=== PATIENT | female | born 1930 | race Caucasian/White ===

== ENCOUNTER → 2017-07-19 | Outpatient (CLI) | payer MEDICARE ==
[~2017-07-19] MED LIST: GADAVIST IV PRN
--- NOTE | 2017-07-19 17:31 | DIAGNOSTIC IMAGING REPORT ---
BRAIN COMBO FOR IAC CLINICAL HISTORY: 87 years-old Female presenting with HEADACHES, FALLS,LIGHT HEADEDNESS, nausea, vomiting, history of head trauma, history of TIAs, symptoms began February 2017. TECHNIQUE: Multisequence, multiplanar MR imaging of the brain was performed before and after the administration of intravenous contrast. Dedicated sequences for evaluation of the internal auditory canals were also performed.IV contrast: 0.5 mL of Gadavist. COMPARISON: 08/13/2009. FINDINGS: 4 x 2.8 cm heterogeneously T2 hyperintense, heterogeneously T1 hyperintense mass in the left paramedian posterior cerebellar hemisphere. There are also foci of susceptibility artifact suggesting hemosiderin or less likely calcification (series 8 image 7). This demonstrates extensive enhancement on postcontrast imaging (series 11 image 8). Extensive FLAIR signal abnormality within the bilateral cerebellar hemispheres (series 5 image 7; series 6 image 18). Confluent T2/FLAIR hyperintensity within the left frontal lobe is new from prior with a focal heterogeneously avidly enhancing 1.4 x 1.7 cm lesion (series 11 image 17). Few punctate foci of restricted diffusion noted in this region. Several of the postcontrast sequences are degraded by motion artifact limiting evaluation for small enhancing lesions. The pituitary gland is mildly enlarged measuring 7 mm in cc dimension with an upward convexity. Proportional ventricular and sulcal prominence, likely age-related parenchymal volume loss. Periventricular and subcortical white matter T2/FLAIR hyperintensity, nonspecific but likely indicative of chronic small vessel ischemic change. No extra-axial fluid collection. Visualized cranial nerves within normal limits. Internal auditory canals within normal limits though there is effacement of the left cerebellar pontine angle due to mass effect from the left cerebellar mass and cerebellar edema. T2 skull base flow voids preserved. Bone marrow signal intensity within the calvarium within normal limits. IMPRESSION: 1. Two avidly enhancing masses, the largest in the left cerebellar hemisphere and the smaller the left frontal lobe. Findings most consistent with metastatic disease. Correlate with primary malignancy. Electronically signed by: Mauro De La Vega M.D. 07/19/2017 5:30 PM Dictated Date/Time: 07/19/2017 5:17 PM
== END | disposition home or self-care (01) ==
LOC: C.MRI 16:06
PROVIDERS: ATTEND Physician Assistant Medical
DX: R51 Headache (principal); R11.2 Nausea with vomiting, unspecified; H93.19 Tinnitus, unspecified ear; R29.6 Repeated falls; Z87.828 Personal history of other (healed) physical injury and trauma